=== PATIENT | male | born 1965 | race Caucasian/White ===

== ENCOUNTER 2017-03-28 16:36 | Inpatient (IN) | payer OTHER ==
[~2017-03-28] VITALS: Ht 167.6 cm; Wt 110.1 kg
[2017-03-28 17:03] LABS: BASE EXCESS -0.8 mEq/L (-3 to +3); BICARBONATE 30.7 mEq/L (22-26); CARBOXY HGB 5.1 % (0-5); COMMENTS - BLOOD GASES A+C+; DEVICE VENT; MECHANICAL RATE 12 resp/min; MODE AC; PCO2 86 mm Hg (35-45); PO2 73 mm Hg (80-100); SITE RR; TIDAL VOLUME 500 ML; pH 7.16 (7.35-7.45)
[2017-03-28 17:04] LABS: FI02 60 %; PEEP 5 CM/H20
[2017-03-28 17:13] LABS: EOSINOPHIL (%) 0 % (0-5); HEMATOCRIT 46.2 % (38.0-50.0); IMMATURE GRANULOCYTE (%) 1.1 % (0.0-0.7); IMMATURE GRANULOCYTE COUNT 0.2 K/uL; INSTRUMENT ABS NEUTROPHIL CT 13.8 K/uL; LYMPHOCYTE COUNT 0.6 K/uL (1.0-2.8); MCH 30.5 PG (29.0-34.0); MCHC 31.8 G/DL (30.0-36.0); MCV 95.9 FL (86-99); MEAN PLAT.VOLUME 11.3 uM^3 (9.0-12.4); MONOCYTE (%) 4.5 % (3-12); MONOCYTE COUNT 0.7 K/uL (0-0.8); NEUTROPHIL (%) 90.2 % (45-76); NEUTROPHIL COUNT 13.8 K/uL (1.8-6.4); PLATELET COUNT 161 K/uL (156-360); RBC DIS.WIDTH-CV 13.9 % (11.8-14.6); RBC DIS.WIDTH-SD 49.1 % (39-53); RED BLOOD COUNT 4.82 M/uL (4.00-5.50); WHITE BLOOD COUNT 15.2 K/uL (4.1-10.2)
[2017-03-28 17:24] LABS: CHLORIDE 101 mEq/L (99-109); POTASSIUM 4.3 mEq/L (3.7-5.4); SODIUM 136 mEq/L (136-147)
[2017-03-28 17:26] LABS: GLUCOSE 262 mg/dL (70-99)
[2017-03-28 17:27] LABS: ANION GAP 12 MEQ/L (2-14)
[2017-03-28 17:28] LABS: TOTAL BILIRUBIN 0.2 mg/dL (0.0-1.0)
[2017-03-28 17:29] LABS: SERUM ETHYL ALCOHOL < 10 mg/dL
[2017-03-28 17:30] LABS: ALKALINE PHOSPHATASE 73 IU/L (3-129); GFR ESTIMATE (CALCULATED) 57 mL/min/
[2017-03-28 17:32] LABS: UREA NITROGEN (BUN) 16 mg/dL (9-23)
[2017-03-28 17:33] LABS: SALICYLATE < 5.0 MG/DL (15-30)
[2017-03-28 17:34] LABS: CREATINE KINASE 177 IU/L (1-294); TOTAL CK 177 IU/L (1-294)
[2017-03-28 17:37] LABS: TROP-I INTERPRETATION NEGATIVE; TROPONIN-I 0.01 ng/mL (0.0-0.30)
[2017-03-28 17:40] LABS: CK-MB 1.7 ng/mL (0.0-4.9)
[2017-03-28 17:52] LABS: ADD MIUA? YES; BILIRUBIN NEGATIVE; BLOOD NEGATIVE; COLOR YELLOW ((YELLOW)); GLUCOSE (STRIP) >=500; KETONES NEGATIVE; LEUKOCYTES NEGATIVE; NITRITE NEGATIVE; PROTEIN (STRIP) 100; SPECIFIC GRAVITY 1.015 (1.000-1.030)
[2017-03-28 18:08] LABS: BACTERIA RARE /HPF; EPITHELIAL CELLS RARE /HPF; HYALINE CASTS 20-30 /LPF; MUCUS 1+ /LPF; UCUL ADDED? NO
[2017-03-28 19:48] LABS: AMPHETAMINE NEGATIVE (500 ng/mL); BARBITURATES NEGATIVE (200 ng/mL); BENZODIAZEPINES NEGATIVE (150 ng/mL); COCAINE PRESUMPTIVE POSITIVE (150 ng/mL); INTERNAL CONTROLS VALID? YES; METHADONE NEGATIVE (200 ng/mL); METHAMPHETAMINE NEGATIVE (500 ng/mL); OPIATES (MORPHINE) NEGATIVE (100 ng/mL); OXYCODONE NEGATIVE (100 ng/mL); PHENCYCLIDINE NEGATIVE (25 ng/mL); PROPOXYPHENE NEGATIVE (300 ng/mL); THC CANNABINOIDS NEGATIVE (50 ng/mL); TRICYCLIC ANTIDEPRESSANTS NEGATIVE (300 ng/mL)
[2017-03-28 19:49] LABS: ADD MEDTOX COMMENT Y
[2017-03-28 20:19] LABS: BASE EXCESS 3.1 mEq/L (-3 to +3); BICARBONATE 29.8 mEq/L (22-26); CARBOXY HGB 2.9 % (0-5); DEVICE VENT; FI02 100 %; MECHANICAL RATE 15 resp/min; METHEMOGLOBIN 1.2 % (0-1.5); MODE AC; PCO2 54 mm Hg (35-45); PEEP 5 CM/H20; PO2 309 mm Hg (80-100); SITE A+C+; TIDAL VOLUME 500 ML; TOTAL RESP RATE 24 resp/min; pH 7.35 (7.35-7.45)
[2017-03-28 21:20] VITALS: BP 158/95
[2017-03-28 22:00] VITALS: BP 104/62
[2017-03-28 22:04] VITALS: BP 157/107
[2017-03-28 23:00] VITALS: BP 90/55
[2017-03-29] VITALS (20 sets, daily range): BP systolic 97–150; BP diastolic 57–92
[2017-03-29 00:03] LABS: METH RESISTANT S AUREUS PCR NEGATIVE (NEGATIVE)
[2017-03-29 00:32] LABS: PROBE CHECK PASS; SPECIMEN PROCESSING CONTROL PASS
[2017-03-29 06:24] LABS: ANION GAP 4 MEQ/L (2-14); CHLORIDE 105 MEQ/L (99-109); GFR ESTIMATE (CALCULATED) > 59 mL/min/; POTASSIUM 4.5 MEQ/L (3.7-5.4); SAMPLE HEMOLYSIS CHECK 0; SAMPLE ICTERIC CHECK 0; SAMPLE LIPEMIA CHECK 0; SODIUM 141 MEQ/L (136-147); UREA NITROGEN (BUN) 14 mg/dL (9-23)
[2017-03-29 06:39] LABS: HEMATOCRIT 45.3 % (38.0-50.0); MCH 30.5 PG (29.0-34.0); MCV 95.4 FL (86-99); MEAN PLAT.VOLUME 11.2 uM^3 (9.0-12.4); PLATELET COUNT 138 K/uL (156-360); RBC DIS.WIDTH-SD 49.2 % (39-53); RED BLOOD COUNT 4.75 M/uL (4.00-5.50); WHITE BLOOD COUNT 10.6 K/uL (4.1-10.2)
[2017-03-29 06:40] LABS: GLUCOSE 96 mg/dL (70-99)
[2017-03-29 08:23] LABS: MAGNESIUM 1.9 mg/dl (1.3-2.7)
[2017-03-29 15:37] LABS: BASE EXCESS 4.9 mEq/L (-3 to +3); BICARBONATE 31.8 mEq/L (22-26); CARBOXY HGB 2.2 % (0-5); COMMENTS - BLOOD GASES A+C+; METHEMOGLOBIN 1.8 % (0-1.5); PCO2 55 mm Hg (35-45); PO2 80 mm Hg (80-100); SITE RR; pH 7.37 (7.35-7.45)
[2017-03-29 15:38] LABS: CONTINUOUS POS AIRWAY PRESSURE 5 cm H2O; DEVICE VENT; FI02 50 %; MODE TC; TOTAL RESP RATE 20 resp/min
[2017-03-30] VITALS (11 sets, daily range): BP systolic 115–150; BP diastolic 77–87
[2017-03-30] MEDS ORDERED: ELAVIL75 MG PO (06:28)
[2017-03-30] MEDS ORDERED: ABILIFY20 MG PO (06:29)
[2017-03-30] MEDS ORDERED: LEVO-T125 MCG PO (06:30)
[2017-03-30] MEDS ORDERED: DIPHENHYDRAMINE50 M1 PO (06:32)
[2017-03-30 06:56] LABS: ANION GAP 9 MEQ/L (2-14); CHLORIDE 105 MEQ/L (99-109); GFR ESTIMATE (CALCULATED) > 59 mL/min/; GLUCOSE 121 mg/dL (70-99); POTASSIUM 4.5 MEQ/L (3.7-5.4); SAMPLE HEMOLYSIS CHECK 0; SAMPLE ICTERIC CHECK 0; SAMPLE LIPEMIA CHECK 0; SODIUM 141 MEQ/L (136-147); UREA NITROGEN (BUN) 15 mg/dL (9-23)
[2017-03-30 06:57] LABS: MAGNESIUM 2.2 mg/dl (1.3-2.7)
[2017-03-30 09:33] LABS: EOSINOPHIL (%) 0 % (0-5); HEMATOCRIT 41.3 % (38.0-50.0); IMMATURE GRANULOCYTE (%) 0.6 % (0.0-0.7); IMMATURE GRANULOCYTE COUNT 0.1 K/uL; INSTRUMENT ABS NEUTROPHIL CT 9.8 K/uL; LYMPHOCYTE COUNT 0.9 K/uL (1.0-2.8); MCH 30.2 PG (29.0-34.0); MCHC 32.2 G/DL (30.0-36.0); MCV 93.7 FL (86-99); MEAN PLAT.VOLUME 11.8 uM^3 (9.0-12.4); MONOCYTE (%) 7.4 % (3-12); MONOCYTE COUNT 0.9 K/uL (0-0.8); NEUTROPHIL (%) 84.1 % (45-76); NEUTROPHIL COUNT 9.8 K/uL (1.8-6.4); PLATELET COUNT 132 K/uL (156-360); RBC DIS.WIDTH-SD 47.6 % (39-53); RED BLOOD COUNT 4.41 M/uL (4.00-5.50); WHITE BLOOD COUNT 11.6 K/uL (4.1-10.2)
[2017-03-30] MEDS ORDERED: ELAVIL50 MG PO (11:11)
[2017-03-31] VITALS: BP 130/85
[2017-03-31 02:00] VITALS: BP 135/86
[2017-03-31 04:00] VITALS: BP 118/69
[2017-03-31 05:31] LABS: EOSINOPHIL (%) 0.6 % (0-5); EOSINOPHIL COUNT 0.1 K/uL (0-0.3); HEMATOCRIT 41.5 % (38.0-50.0); IMMATURE GRANULOCYTE (%) 0.3 % (0.0-0.7); LYMPHOCYTE COUNT 1.6 K/uL (1.0-2.8); MCH 30.2 PG (29.0-34.0); MCHC 32.3 G/DL (30.0-36.0); MCV 93.7 FL (86-99); MEAN PLAT.VOLUME 11.1 uM^3 (9.0-12.4); MONOCYTE (%) 7.3 % (3-12); MONOCYTE COUNT 0.7 K/uL (0-0.8); NEUTROPHIL (%) 74.1 % (45-76); PLATELET COUNT 135 K/uL (156-360); RBC DIS.WIDTH-CV 14.4 % (11.8-14.6); RBC DIS.WIDTH-SD 49.3 % (39-53); RED BLOOD COUNT 4.43 M/uL (4.00-5.50); WHITE BLOOD COUNT 9.4 K/uL (4.1-10.2)
[2017-03-31 05:51] LABS: ANION GAP 8 MEQ/L (2-14); CHLORIDE 104 MEQ/L (99-109); GFR ESTIMATE (CALCULATED) > 59 mL/min/; GLUCOSE 91 mg/dL (70-99); MAGNESIUM 1.9 mg/dl (1.3-2.7); SAMPLE HEMOLYSIS CHECK 0; SAMPLE ICTERIC CHECK 0; SAMPLE LIPEMIA CHECK 0; SODIUM 141 MEQ/L (136-147); UREA NITROGEN (BUN) 17 mg/dL (9-23)
[2017-03-31 06:00] VITALS: BP 116/84
[2017-03-31] MEDS ORDERED: VENTOLIN HFA18 GM IH (07:59)
[2017-03-31] MEDS ORDERED: AUGMENTIN875 MG PO (07:59)
[2017-03-31 08:30] VITALS: BP 128/71
== END 2017-03-31 11:17 | disposition home or self-care (01) | DRG 917 ==
LOC: EME 16:36 → EDOF 20:10 → 4WEST 20:10
PROVIDERS: Emergency Medicine; Hospitalist; Internal Medicine Critical Care Medicine; Internal Medicine Nephrology
PROC: 5A1945Z Respiratory Ventilation, 24-96 Consecutive Hours (ICD-10-PCS; principal; 2017-03-28)
PROC: 0BH17EZ Insertion of Endotracheal Airway into Trachea, Via Natural or Artificial Opening (ICD-10-PCS; principal; 2017-03-28)
DX: T50.901A Poisoning by unspecified drugs, medicaments and biological substances, accidental (unintentional), initial encounter (principal); J96.00 Acute respiratory failure, unspecified whether with hypoxia or hypercapnia; J69.0 Pneumonitis due to inhalation of food and vomit; N17.9 Acute kidney failure, unspecified; E86.1 Hypovolemia; E87.2 Acidosis; J98.11 Atelectasis; E66.9 Obesity, unspecified; F14.20 Cocaine dependence, uncomplicated; I95.9 Hypotension, unspecified; F17.200 Nicotine dependence, unspecified, uncomplicated; Z68.39 Body mass index [BMI] 39.0-39.9, adult
CPT/HCPCS: 36600; 70450; 71010; 80048; 80053; 81003; 82550; 82553; 82803; 83605; 83735; 84100; 84484; 84999; 85025; 85027; 87040; 87070; 87077; 87086; 87147; 87186; 87205; 87641; 93005; 94002; 94003; 94640; 94640 76; 94760; 94799; 99202; 99281; 99285; G0480; J1650; J2310; J2543; J2704; J2930; J3370; J3475; J7030; J7050; S0028

== ENCOUNTER 2017-04-27 16:35 | Inpatient (IN) | payer OTHER ==
[~2017-04-27] VITALS: Ht 172.7 cm; Wt 89.6 kg
[~2017-04-27 16:35] MED LIST: ABILIFY20 MG PO; AUGMENTIN875 MG PO; DIPHENHYDRAMINE50 M1 PO; ELAVIL50 MG PO; ELAVIL75 MG PO; LEVO-T125 MCG PO; VENTOLIN HFA18 GM IH
[2017-04-27 17:10] LABS: BASOPHIL COUNT 0.1 K/uL (0-0.1); EOSINOPHIL (%) 0.5 % (0-5); EOSINOPHIL COUNT 0.1 K/uL (0-0.3); HEMATOCRIT 47.3 % (38.0-50.0); IMMATURE GRANULOCYTE (%) 0.3 % (0.0-0.7); INSTRUMENT ABS NEUTROPHIL CT 7.5 K/uL; MCH 30.6 PG (29.0-34.0); MCV 89.9 FL (86-99); MEAN PLAT.VOLUME 11.4 uM^3 (9.0-12.4); MONOCYTE (%) 7.7 % (3-12); MONOCYTE COUNT 0.8 K/uL (0-0.8); NEUTROPHIL (%) 71.9 % (45-76); NEUTROPHIL COUNT 7.5 K/uL (1.8-6.4); PLATELET COUNT 174 K/uL (156-360); RBC DIS.WIDTH-CV 13.2 % (11.8-14.6); RBC DIS.WIDTH-SD 43.7 % (39-53); RED BLOOD COUNT 5.26 M/uL (4.00-5.50); WHITE BLOOD COUNT 10.4 K/uL (4.1-10.2)
[2017-04-27 17:21] LABS: CHLORIDE 114 mEq/L (99-109); POTASSIUM 3.9 mEq/L (3.7-5.4); SODIUM 149 mEq/L (136-147)
[2017-04-27 17:23] LABS: GLUCOSE 100 mg/dL (70-99)
[2017-04-27 17:23] LABS: ADD MIUA? YES; BILIRUBIN NEGATIVE; BLOOD SMALL; COLOR AMBER ((YELLOW)); GLUCOSE (STRIP) NEGATIVE; KETONES 20; LEUKOCYTES NEGATIVE; NITRITE NEGATIVE; PROTEIN (STRIP) 100; SPECIFIC GRAVITY 1.034 (1.000-1.030); UROBILINOGEN 0.2 MG/DL (0.2-1.0)
[2017-04-27 17:24] LABS: ANION GAP 12 MEQ/L (2-14)
[2017-04-27 17:25] LABS: TOTAL BILIRUBIN 0.6 mg/dL (0.0-1.0)
[2017-04-27 17:26] LABS: SERUM ETHYL ALCOHOL < 10 mg/dL
[2017-04-27 17:27] LABS: ALKALINE PHOSPHATASE 56 IU/L (3-129); GFR ESTIMATE (CALCULATED) > 59 mL/min/
[2017-04-27 17:28] LABS: UREA NITROGEN (BUN) 30 mg/dL (9-23)
[2017-04-27 17:39] LABS: ADD MEDTOX COMMENT Y; AMPHETAMINE NEGATIVE (500 ng/mL); BARBITURATES NEGATIVE (200 ng/mL); BENZODIAZEPINES NEGATIVE (150 ng/mL); COCAINE PRESUMPTIVE POSITIVE (150 ng/mL); INTERNAL CONTROLS VALID? YES; METHADONE NEGATIVE (200 ng/mL); METHAMPHETAMINE NEGATIVE (500 ng/mL); OPIATES (MORPHINE) NEGATIVE (100 ng/mL); OXYCODONE NEGATIVE (100 ng/mL); PHENCYCLIDINE PRESUMPTIVE POSITIVE (25 ng/mL); PROPOXYPHENE NEGATIVE (300 ng/mL); THC CANNABINOIDS NEGATIVE (50 ng/mL); TRICYCLIC ANTIDEPRESSANTS NEGATIVE (300 ng/mL)
[2017-04-27 17:43] LABS: BACTERIA NONE SEEN /HPF; EPITHELIAL CELLS NONE SEEN /HPF; MUCUS 4+ /LPF; UCUL ADDED? NO; WHITE BLOOD CELLS 0-5 /HPF (0-5)
[2017-04-27 21:07] LABS: CK-MB 1.7 ng/mL (0.0-4.9)
[2017-04-27 22:01] LABS: CREATINE KINASE 338 IU/L (1-294)
[2017-04-27 22:09] LABS: TOTAL CK 338 IU/L (1-294)
[2017-04-28 01:29] VITALS: BP 122/84
[2017-04-28 04:08] VITALS: BP 130/66
[2017-04-28 07:09] LABS: HEMATOCRIT 45.7 % (38.0-50.0); MCH 29.8 PG (29.0-34.0); MCHC 32.2 G/DL (30.0-36.0); MCV 92.7 FL (86-99); MEAN PLAT.VOLUME 11.9 uM^3 (9.0-12.4); PLATELET COUNT 135 K/uL (156-360); RBC DIS.WIDTH-CV 13.6 % (11.8-14.6); RBC DIS.WIDTH-SD 46.3 % (39-53); RED BLOOD COUNT 4.93 M/uL (4.00-5.50); WHITE BLOOD COUNT 6.9 K/uL (4.1-10.2)
[2017-04-28 07:36] LABS: ANION GAP 10 MEQ/L (2-14); CHLORIDE 113 MEQ/L (99-109); GFR ESTIMATE (CALCULATED) > 59 mL/min/; GLUCOSE 75 mg/dL (70-99); POTASSIUM 3.7 MEQ/L (3.7-5.4); SAMPLE HEMOLYSIS CHECK 0; SAMPLE ICTERIC CHECK 0; SAMPLE LIPEMIA CHECK 0; SODIUM 149 MEQ/L (136-147); UREA NITROGEN (BUN) 24 mg/dL (9-23)
[2017-04-28 07:45] VITALS: BP 128/78
[2017-04-28 16:29] VITALS: BP 137/101
[2017-04-28 17:07] LABS: ANION GAP 11 MEQ/L (2-14); CHLORIDE 110 MEQ/L (99-109); POTASSIUM 3.8 MEQ/L (3.7-5.4); SAMPLE HEMOLYSIS CHECK 0; SAMPLE ICTERIC CHECK 0; SAMPLE LIPEMIA CHECK 0; SODIUM 145 MEQ/L (136-147)
[2017-04-28 17:12] LABS: GFR ESTIMATE (CALCULATED) > 59 mL/min/; UREA NITROGEN (BUN) 20 mg/dL (9-23)
[2017-04-28 17:36] LABS: GLUCOSE 96 mg/dL (70-99)
[2017-04-28 18:48] LABS: CREATINE KINASE 525 IU/L (1-294)
[2017-04-28 19:42] VITALS: BP 147/84
[2017-04-29 03:38] VITALS: BP 174/100
[2017-04-29 08:02] VITALS: BP 140/85
[2017-04-29 10:36] LABS: HEMATOCRIT 43.7 % (38.0-50.0); MCH 30.2 PG (29.0-34.0); MCHC 33.4 G/DL (30.0-36.0); MCV 90.3 FL (86-99); MEAN PLAT.VOLUME 12.1 uM^3 (9.0-12.4); PLATELET COUNT 117 K/uL (156-360); RBC DIS.WIDTH-CV 12.8 % (11.8-14.6); RBC DIS.WIDTH-SD 42.4 % (39-53); RED BLOOD COUNT 4.84 M/uL (4.00-5.50); WHITE BLOOD COUNT 6.6 K/uL (4.1-10.2)
[2017-04-29 10:57] LABS: ANION GAP 10 MEQ/L (2-14); CHLORIDE 105 MEQ/L (99-109); GFR ESTIMATE (CALCULATED) > 59 mL/min/; GLUCOSE 71 mg/dL (70-99); POTASSIUM 3.9 MEQ/L (3.7-5.4); SAMPLE HEMOLYSIS CHECK 0; SAMPLE ICTERIC CHECK 0; SAMPLE LIPEMIA CHECK 0; SODIUM 140 MEQ/L (136-147); UREA NITROGEN (BUN) 15 mg/dL (9-23)
[2017-04-29 16:15] VITALS: BP 138/80
[2017-04-29 23:36] VITALS: BP 131/88
[2017-04-30 04:10] VITALS: BP 172/83
[2017-04-30 07:34] VITALS: BP 142/70
[2017-04-30 07:40] VITALS: BP 140/72
[2017-04-30 10:31] LABS: ANION GAP 12 MEQ/L (2-14); CHLORIDE 104 MEQ/L (99-109); GFR ESTIMATE (CALCULATED) > 59 mL/min/; GLUCOSE 77 mg/dL (70-99); SAMPLE HEMOLYSIS CHECK 1; SAMPLE ICTERIC CHECK 0; SAMPLE LIPEMIA CHECK 0; SODIUM 140 MEQ/L (136-147); UREA NITROGEN (BUN) 12 mg/dL (9-23)
[2017-04-30 10:32] LABS: POTASSIUM 4.7 MEQ/L (3.7-5.4)
[2017-04-30 16:33] VITALS: BP 134/91
[2017-04-30 19:54] VITALS: BP 165/86
[2017-05-01 00:40] VITALS: BP 136/90
[2017-05-01 04:02] VITALS: BP 162/81
[2017-05-01 08:29] VITALS: BP 125/81
[2017-05-01 09:33] LABS: HEMATOCRIT 46.9 % (38.0-50.0); MCH 30.8 PG (29.0-34.0); MCV 88.2 FL (86-99); RBC DIS.WIDTH-CV 12.8 % (11.8-14.6); RBC DIS.WIDTH-SD 41.3 % (39-53); RED BLOOD COUNT 5.32 M/uL (4.00-5.50)
[2017-05-01 09:57] LABS: ANION GAP 11 MEQ/L (2-14); CHLORIDE 102 MEQ/L (99-109); GFR ESTIMATE (CALCULATED) > 59 mL/min/; POTASSIUM 4.1 MEQ/L (3.7-5.4); SAMPLE HEMOLYSIS CHECK 0; SAMPLE ICTERIC CHECK 0; SAMPLE LIPEMIA CHECK 0; SODIUM 138 MEQ/L (136-147); UREA NITROGEN (BUN) 11 mg/dL (9-23)
[2017-05-01 09:58] LABS: GLUCOSE 158 mg/dL (70-99); MEAN PLAT.VOLUME 12.5 uM^3 (9.0-12.4); PLAT.SUFFICIENCY DECREASED; PLATELET COUNT 124 K/uL (156-360)
[2017-05-01 11:42] LABS: TROP-I INTERPRETATION NEGATIVE; TROPONIN-I < 0.01 ng/mL (0.0-0.30)
[2017-05-01 12:20] VITALS: BP 124/81
[2017-05-01 16:00] VITALS: BP 149/72
[2017-05-01 20:11] VITALS: BP 145/80
[2017-05-02 00:25] VITALS: BP 175/79
[2017-05-02 08:04] VITALS: BP 132/104
[2017-05-02 09:34] LABS: MCH 30.2 PG (29.0-34.0); MCV 88.8 FL (86-99); RBC DIS.WIDTH-CV 12.7 % (11.8-14.6); RBC DIS.WIDTH-SD 41.6 % (39-53); RED BLOOD COUNT 5.29 M/uL (4.00-5.50); WHITE BLOOD COUNT 5.3 K/uL (4.1-10.2)
[2017-05-02 10:00] LABS: ANION GAP 8 MEQ/L (2-14); CHLORIDE 103 MEQ/L (99-109); GFR ESTIMATE (CALCULATED) > 59 mL/min/; POTASSIUM 4.4 MEQ/L (3.7-5.4); SAMPLE HEMOLYSIS CHECK 1; SAMPLE ICTERIC CHECK 0; SAMPLE LIPEMIA CHECK 0; SODIUM 139 MEQ/L (136-147); UREA NITROGEN (BUN) 12 mg/dL (9-23)
[2017-05-02 10:01] LABS: GLUCOSE 96 mg/dL (70-99)
[2017-05-02 14:58] VITALS: BP 134/80
[2017-05-02 15:50] VITALS: BP 136/91
[2017-05-02 20:31] VITALS: BP 157/82
[2017-05-02 23:54] VITALS: BP 147/75
[2017-05-03 04:34] VITALS: BP 174/75
[2017-05-03 08:29] VITALS: BP 118/75
[2017-05-03 11:50] VITALS: BP 133/83
[2017-05-03 16:50] VITALS: BP 135/81
[2017-05-03 20:44] VITALS: BP 154/86
[2017-05-03 23:35] VITALS: BP 126/75
[2017-05-04 04:34] VITALS: BP 171/112
[2017-05-04 08:52] VITALS: BP 178/121
[2017-05-04 09:33] VITALS: BP 128/74
[2017-05-04 13:29] VITALS: BP 129/81
[2017-05-04 16:54] VITALS: BP 134/86
[2017-05-04 19:47] VITALS: BP 124/80
[2017-05-05 04:10] VITALS: BP 139/78
[2017-05-05 08:05] VITALS: BP 130/84
[2017-05-05 09:33] LABS: EOSINOPHIL (%) 2.1 % (0-5); EOSINOPHIL COUNT 0.1 K/uL (0-0.3); HEMATOCRIT 49.1 % (38.0-50.0); IMMATURE GRANULOCYTE (%) 0.8 % (0.0-0.7); IMMATURE GRANULOCYTE COUNT 0.1 K/uL; INSTRUMENT ABS NEUTROPHIL CT 3.2 K/uL; MCH 30.5 PG (29.0-34.0); MCV 87.1 FL (86-99); MEAN PLAT.VOLUME 12.9 uM^3 (9.0-12.4); MONOCYTE (%) 10.4 % (3-12); MONOCYTE COUNT 0.6 K/uL (0-0.8); NEUTROPHIL (%) 52.6 % (45-76); NEUTROPHIL COUNT 3.2 K/uL (1.8-6.4); RBC DIS.WIDTH-CV 12.7 % (11.8-14.6); RBC DIS.WIDTH-SD 39.8 % (39-53); RED BLOOD COUNT 5.64 M/uL (4.00-5.50); WHITE BLOOD COUNT 6.1 K/uL (4.1-10.2)
[2017-05-05 09:41] LABS: PLATELET COUNT 165 K/uL (156-360)
[2017-05-05 09:49] LABS: ANION GAP 10 MEQ/L (2-14); CHLORIDE 102 MEQ/L (99-109); GFR ESTIMATE (CALCULATED) > 59 mL/min/; GLUCOSE 90 mg/dL (70-99); POTASSIUM 4.5 MEQ/L (3.7-5.4); SAMPLE HEMOLYSIS CHECK 1; SAMPLE ICTERIC CHECK 0; SAMPLE LIPEMIA CHECK 0; SODIUM 135 MEQ/L (136-147); UREA NITROGEN (BUN) 20 mg/dL (9-23)
[2017-05-05 12:07] VITALS: BP 154/99
[2017-05-05 15:59] VITALS: BP 130/86
[2017-05-05 19:50] VITALS: BP 123/84
[2017-05-05 23:46] VITALS: BP 112/78
[2017-05-06 04:15] VITALS: BP 160/94
[2017-05-06 07:41] VITALS: BP 128/64
[2017-05-06 11:20] VITALS: BP 132/74
[2017-05-06 16:43] VITALS: BP 122/78
[2017-05-06 19:35] VITALS: BP 165/94
[2017-05-07 00:33] VITALS: BP 138/78
[2017-05-07 05:17] VITALS: BP 142/83
[2017-05-07 06:49] LABS: ANION GAP 9 MEQ/L (2-14); CHLORIDE 106 MEQ/L (99-109); GFR ESTIMATE (CALCULATED) > 59 mL/min/; GLUCOSE 87 mg/dL (70-99); POTASSIUM 4.4 MEQ/L (3.7-5.4); SAMPLE HEMOLYSIS CHECK 2; SAMPLE ICTERIC CHECK 0; SAMPLE LIPEMIA CHECK 0; SODIUM 138 MEQ/L (136-147); UREA NITROGEN (BUN) 20 mg/dL (9-23)
[2017-05-07 08:15] VITALS: BP 142/78
[2017-05-07 11:09] VITALS: BP 128/71
[2017-05-07 16:24] VITALS: BP 140/78
[2017-05-07 19:44] VITALS: BP 183/98
[2017-05-08] MEDS ORDERED: DAILY VALUE1 EACH PO (01:36)
[2017-05-08] MEDS ORDERED: ESCITALOPRAM OX10 MG PO (01:37)
[2017-05-08] MEDS ORDERED: LEVOCETIRIZINE D5 MG PO (01:39)
[2017-05-08 01:43] VITALS: BP 137/74
[2017-05-08] MEDS ORDERED: PREVACID30 MG PO (01:43)
[2017-05-08] MEDS ORDERED: RISPERDAL0.5 MG PO (01:44)
[2017-05-08] MEDS ORDERED: VALTREX50 MG/ML PO (01:44)
[2017-05-08] MEDS ORDERED: DEPO-PROVER150 MG/ML IM (01:47)
[2017-05-08] MEDS ORDERED: TYLENOL EXTRA500 MG PO (01:48)
[2017-05-08] MEDS ORDERED: TOPICORT 0.05%60 GM TP (01:48)
[2017-05-08] MEDS ORDERED: FLONASE16 G1 BOTH NARES (01:51)
[2017-05-08] MEDS ORDERED: IBUPROFEN600 MG PO (01:56)
[2017-05-08] MEDS ORDERED: TYLENOL PM1 CAPLET PO (01:56)
[2017-05-08] MEDS ORDERED: ROBITUSSIN DM118 ML PO (01:58)
[2017-05-08 05:23] VITALS: BP 115/77
[2017-05-08 16:48] VITALS: BP 128/71
[2017-05-08 23:51] VITALS: BP 169/88
[2017-05-09 08:56] VITALS: BP 117/80
[2017-05-09 15:47] VITALS: BP 149/83
[2017-05-09 23:47] VITALS: BP 159/76
[2017-05-10 07:39] VITALS: BP 128/56
[2017-05-10 23:39] VITALS: BP 165/96
[2017-05-11 06:55] LABS: HEMATOCRIT 41.7 % (38.0-50.0); MCH 30.9 PG (29.0-34.0); MCHC 35.5 G/DL (30.0-36.0); MCV 87.1 FL (86-99); MEAN PLAT.VOLUME 12.5 uM^3 (9.0-12.4); PLATELET COUNT 167 K/uL (156-360); RBC DIS.WIDTH-CV 12.5 % (11.8-14.6); RBC DIS.WIDTH-SD 39.8 % (39-53); RED BLOOD COUNT 4.79 M/uL (4.00-5.50); WHITE BLOOD COUNT 5.3 K/uL (4.1-10.2)
[2017-05-11 07:04] LABS: ANION GAP 9 MEQ/L (2-14); CHLORIDE 102 MEQ/L (99-109); GFR ESTIMATE (CALCULATED) > 59 mL/min/; GLUCOSE 88 mg/dL (70-99); POTASSIUM 3.9 MEQ/L (3.7-5.4); SAMPLE HEMOLYSIS CHECK 0; SAMPLE ICTERIC CHECK 0; SAMPLE LIPEMIA CHECK 0; SODIUM 137 MEQ/L (136-147); UREA NITROGEN (BUN) 10 mg/dL (9-23)
[2017-05-11 23:38] VITALS: BP 137/90
[2017-05-12 08:00] VITALS: BP 134/82
[2017-05-12 16:39] VITALS: BP 98/65
[2017-05-12 23:35] VITALS: BP 133/99
[2017-05-13 08:28] VITALS: BP 135/85
[2017-05-13 10:04] LABS: ANION GAP 8 MEQ/L (2-14); CHLORIDE 102 MEQ/L (99-109); GFR ESTIMATE (CALCULATED) > 59 mL/min/; GLUCOSE 90 mg/dL (70-99); POTASSIUM 4.2 MEQ/L (3.7-5.4); SAMPLE HEMOLYSIS CHECK 0; SAMPLE ICTERIC CHECK 0; SAMPLE LIPEMIA CHECK 0; SODIUM 138 MEQ/L (136-147); UREA NITROGEN (BUN) 11 mg/dL (9-23)
[2017-05-13 16:01] VITALS: BP 168/85
[2017-05-13 23:20] VITALS: BP 137/63
[2017-05-14 08:11] VITALS: BP 130/89
[2017-05-14 16:26] VITALS: BP 109/69
[2017-05-14 23:38] VITALS: BP 168/72
[2017-05-15 08:12] VITALS: BP 125/71
[2017-05-15 15:37] VITALS: BP 128/61
[2017-05-15 19:33] VITALS: BP 134/82
[2017-05-16] VITALS (7 sets, daily range): BP systolic 117–162; BP diastolic 56–96
[2017-05-16 06:33] LABS: HEMATOCRIT 41.9 % (38.0-50.0); MCHC 34.6 G/DL (30.0-36.0); MCV 86.7 FL (86-99); MEAN PLAT.VOLUME 12.1 uM^3 (9.0-12.4); RBC DIS.WIDTH-CV 12.4 % (11.8-14.6); RBC DIS.WIDTH-SD 39.4 % (39-53); RED BLOOD COUNT 4.83 M/uL (4.00-5.50); WHITE BLOOD COUNT 7.4 K/uL (4.1-10.2)
[2017-05-16 06:52] LABS: PLATELET COUNT 223 K/uL (156-360)
[2017-05-16 06:58] LABS: ANION GAP 10 MEQ/L (2-14); CHLORIDE 102 MEQ/L (99-109); GFR ESTIMATE (CALCULATED) > 59 mL/min/; GLUCOSE 91 mg/dL (70-99); POTASSIUM 4.1 MEQ/L (3.7-5.4); SAMPLE HEMOLYSIS CHECK 0; SAMPLE ICTERIC CHECK 0; SAMPLE LIPEMIA CHECK 0; SODIUM 139 MEQ/L (136-147); UREA NITROGEN (BUN) 19 mg/dL (9-23)
[2017-05-17 03:43] VITALS: BP 119/73
[2017-05-17 07:42] VITALS: BP 117/63
[2017-05-17 16:06] VITALS: BP 126/57
[2017-05-17 18:26] LABS: HEMATOCRIT 41.7 % (38.0-50.0); MCH 30.1 PG (29.0-34.0); MCHC 34.1 G/DL (30.0-36.0); MCV 88.3 FL (86-99); PLATELET COUNT 164 K/uL (156-360); RBC DIS.WIDTH-CV 12.5 % (11.8-14.6); RBC DIS.WIDTH-SD 41.1 % (39-53); RED BLOOD COUNT 4.72 M/uL (4.00-5.50); WHITE BLOOD COUNT 6.8 K/uL (4.1-10.2)
[2017-05-17 18:41] LABS: ANION GAP 8 MEQ/L (2-14); CHLORIDE 101 MEQ/L (99-109); MAGNESIUM 1.9 mg/dl (1.3-2.7); POTASSIUM 3.4 MEQ/L (3.7-5.4); SAMPLE HEMOLYSIS CHECK 0; SAMPLE ICTERIC CHECK 0; SAMPLE LIPEMIA CHECK 0; SODIUM 135 MEQ/L (136-147)
[2017-05-17 18:48] LABS: GFR ESTIMATE (CALCULATED) > 59 mL/min/; UREA NITROGEN (BUN) 19 mg/dL (9-23)
[2017-05-17 18:51] LABS: GLUCOSE 152 mg/dL (70-99)
[2017-05-18 00:25] VITALS: BP 130/84
[2017-05-18 07:41] VITALS: BP 123/83
[2017-05-18 15:13] VITALS: BP 151/73
[2017-05-18 23:37] VITALS: BP 130/93
[2017-05-19 08:45] VITALS: BP 148/71
[2017-05-19 15:57] VITALS: BP 118/60
[2017-05-19 23:34] VITALS: BP 129/69
[2017-05-20 08:22] VITALS: BP 169/81
[2017-05-20 08:58] LABS: POINT-OF-CARE METER ID UU14188577
[2017-05-20 15:31] VITALS: BP 127/75
[2017-05-21 01:00] VITALS: BP 132/73
[2017-05-21 07:48] VITALS: BP 119/86
[2017-05-21 15:59] VITALS: BP 121/61
[2017-05-21 23:56] VITALS: BP 134/68
[2017-05-22 08:10] VITALS: BP 125/87
[2017-05-22 16:09] VITALS: BP 110/62
[2017-05-22 20:34] VITALS: BP 124/87
[2017-05-22 23:59] VITALS: BP 124/78
[2017-05-23 08:12] VITALS: BP 114/72
[2017-05-23] MEDS ORDERED: HALDOL5 MG PO (11:03)
[2017-05-23] MEDS ORDERED: BACITRACIN28.4 GM TP (11:09)
[2017-05-23] MEDS ORDERED: BISAC-EVAC10 MG PR (11:09)
[2017-05-23 16:22] VITALS: BP 114/61
[2017-05-24 00:09] VITALS: BP 14/67
[2017-05-24 08:18] VITALS: BP 130/84
[2017-05-24 16:00] VITALS: BP 117/71
[2017-05-24 23:50] VITALS: BP 142/86
[2017-05-25 07:49] VITALS: BP 130/73
[2017-05-25 15:18] VITALS: BP 137/89
[2017-05-25 23:50] VITALS: BP 130/72
[2017-05-26 08:17] VITALS: BP 116/72
[2017-05-26 17:16] VITALS: BP 118/80
[2017-05-26 23:34] VITALS: BP 109/67
[2017-05-27 07:36] LABS: ANION GAP 7 MEQ/L (2-14); CHLORIDE 101 MEQ/L (99-109); GFR ESTIMATE (CALCULATED) > 59 mL/min/; GLUCOSE 94 mg/dL (70-99); POTASSIUM 3.8 MEQ/L (3.7-5.4); SAMPLE HEMOLYSIS CHECK 0; SAMPLE ICTERIC CHECK 0; SAMPLE LIPEMIA CHECK 0; SODIUM 138 MEQ/L (136-147); UREA NITROGEN (BUN) 17 mg/dL (9-23)
[2017-05-27 07:55] VITALS: BP 112/79
[2017-05-27 16:25] VITALS: BP 121/81
[2017-05-27 23:31] VITALS: BP 138/80
[2017-05-28 07:53] VITALS: BP 114/67
[2017-05-28 15:42] VITALS: BP 128/79
[2017-05-28 23:40] VITALS: BP 130/74
[2017-05-29 07:38] VITALS: BP 115/65
[2017-05-29 15:54] VITALS: BP 119/70
[2017-05-29 23:53] VITALS: BP 110/65
[2017-05-30 08:11] VITALS: BP 117/65
[2017-05-30 11:55] VITALS: BP 125/75
[2017-05-30 15:35] VITALS: BP 115/73
[2017-05-30 23:26] VITALS: BP 131/81
[2017-05-31 07:18] VITALS: BP 121/74
[2017-05-31 15:27] VITALS: BP 132/77
[2017-05-31 23:30] VITALS: BP 118/57
[2017-06-01 07:00] VITALS: BP 120/74
[2017-06-01 15:00] VITALS: BP 120/80
[2017-06-01 23:47] VITALS: BP 132/75
[2017-06-02 07:59] VITALS: BP 119/73
[2017-06-02 16:15] VITALS: BP 122/83
[2017-06-03 00:03] VITALS: BP 126/72
[2017-06-03 08:30] VITALS: BP 134/80
[2017-06-03 16:15] VITALS: BP 114/78
[2017-06-04 00:12] VITALS: BP 120/65
[2017-06-04 07:41] VITALS: BP 108/59
[2017-06-04 15:55] VITALS: BP 111/66
[2017-06-04 23:40] VITALS: BP 131/79
[2017-06-05 07:58] VITALS: BP 114/73
[2017-06-05 16:08] VITALS: BP 100/67
[2017-06-05 23:17] VITALS: BP 104/67
[2017-06-06 07:52] VITALS: BP 115/68
[2017-06-06 15:51] VITALS: BP 113/63
[2017-06-06 23:52] VITALS: BP 107/65
[2017-06-07 08:13] VITALS: BP 115/59
[2017-06-07 16:34] VITALS: BP 109/68
[2017-06-07 23:37] VITALS: BP 126/70
[2017-06-08 07:50] VITALS: BP 100/60
[2017-06-08 15:24] VITALS: BP 117/73
[2017-06-08 23:31] VITALS: BP 121/62
[2017-06-09 08:21] VITALS: BP 119/71
[2017-06-09 16:09] VITALS: BP 113/68
[2017-06-09 23:44] VITALS: BP 114/62
[2017-06-10 08:32] VITALS: BP 133/84
[2017-06-10 11:58] VITALS: BP 117/63
[2017-06-10 16:39] VITALS: BP 108/69
[2017-06-10 23:38] VITALS: BP 136/76
[2017-06-11 07:46] VITALS: BP 108/70
[2017-06-11 16:30] VITALS: BP 108/65
[2017-06-11 23:30] VITALS: BP 112/59
[2017-06-12 07:48] VITALS: BP 118/62
[2017-06-12 16:30] VITALS: BP 111/71
[2017-06-12 23:14] VITALS: BP 117/62
[2017-06-13 07:49] VITALS: BP 108/55
[2017-06-13 15:10] VITALS: BP 108/77
[2017-06-13 23:47] VITALS: BP 118/74
[2017-06-14 08:18] VITALS: BP 109/72
[2017-06-14 16:30] VITALS: BP 128/65
[2017-06-14 23:23] VITALS: BP 112/55
[2017-06-15 07:44] VITALS: BP 154/59
[2017-06-15 15:25] VITALS: BP 113/64
[2017-06-16 00:16] VITALS: BP 120/65
[2017-06-16 08:44] VITALS: BP 107/59
[2017-06-16] MEDS ORDERED: POLYETHYLENE GL17 GM PO (11:19)
== END 2017-06-16 15:15 | DRG 917 ==
LOC: EME 16:35 → EDOF 23:22 → 3EAST 23:22
PROVIDERS: Emergency Medicine; Hospitalist; Internal Medicine; Physician Assistant
DX: T50.901A Poisoning by unspecified drugs, medicaments and biological substances, accidental (unintentional), initial encounter (principal); F14.23 Cocaine dependence with withdrawal; E87.0 Hyperosmolality and hypernatremia; G92 Toxic encephalopathy; G93.5 Compression of brain; M62.82 Rhabdomyolysis; F19.921 Other psychoactive substance use, unspecified with intoxication with delirium; D72.829 Elevated white blood cell count, unspecified; N17.9 Acute kidney failure, unspecified; S06.9X0A Unspecified intracranial injury without loss of consciousness, initial encounter; R56.9 Unspecified convulsions; R09.02 Hypoxemia; E87.5 Hyperkalemia; F16.10 Hallucinogen abuse, uncomplicated; N18.9 Chronic kidney disease, unspecified; Z78.1 Physical restraint status; R47.01 Aphasia; R63.3 Feeding difficulties; F17.200 Nicotine dependence, unspecified, uncomplicated; Z68.30 Body mass index [BMI] 30.0-30.9, adult; E86.0 Dehydration; G56.21 Lesion of ulnar nerve, right upper limb; R32 Unspecified urinary incontinence
CPT/HCPCS: 70450; 70470; 70551; 71010; 73130; 74177; 80048; 80048 91; 80053; 81003; 82550; 82553; 82948; 83735; 84484; 84999; 85025; 85027; 92507 GN; 92523 GN; 93005; 94799; 95819; 97530 GO; 97530 GP; 97532 GN; 99281; 99285; G0378; G0480; J1200; J1630; J1650; J2060; J3480; J3486; J7040; J7042; J7070; J7120; S0028

== ENCOUNTER 2018-01-22 12:24 | Observation (INO) | payer OTHER ==
[~2018-01-22] VITALS: Ht 175.3 cm; Wt 121.7 kg
[~2018-01-22 12:24] MED LIST changes: +BACITRACIN28.4 GM TP; +BISAC-EVAC10 MG PR; +DAILY VALUE1 EACH PO; +DEPO-PROVER150 MG/ML IM; +ESCITALOPRAM OX10 MG PO; +FLONASE16 G1 BOTH NARES; +HALDOL5 MG PO; +IBUPROFEN600 MG PO; +LEVOCETIRIZINE D5 MG PO; +POLYETHYLENE GL17 GM PO; +PREVACID30 MG PO; +RISPERDAL0.5 MG PO; +ROBITUSSIN DM118 ML PO; +TOPICORT 0.05%60 GM TP; +TYLENOL EXTRA500 MG PO; +TYLENOL PM1 CAPLET PO; +VALTREX50 MG/ML PO
[2018-01-22 14:04] LABS: BASOPHIL (%) 0.1 % (0-1); EOSINOPHIL (%) 0 % (0-5); HEMATOCRIT 41.7 % (38.0-50.0); HEMOGLOBIN 14.2 G/DL (12.5-16.6); IMMATURE GRANULOCYTE (%) 0.5 % (0.0-0.7); LYMPHOCYTE (%) 10.7 % (15-42); LYMPHOCYTE COUNT 1.2 K/uL (1.0-2.8); MCH 31.1 PG (29.0-34.0); MCHC 34.1 G/DL (30.0-36.0); MCV 91.4 FL (86-99); MONOCYTE (%) 8.6 % (3-12); MONOCYTE COUNT 0.9 K/uL (0-0.8); NEUTROPHIL (%) 80.1 % (45-76); NEUTROPHIL COUNT 8.8 K/uL (1.8-6.4); NRBC (%) 0.3 /100 WBC (0-0); PLATELET COUNT 221 K/uL (156-360); RBC DIS.WIDTH-CV 13.5 % (11.8-14.6); RBC DIS.WIDTH-SD 45.4 % (39-53); RED BLOOD COUNT 4.56 M/uL (4.00-5.50); WHITE BLOOD COUNT 10.9 K/uL (4.1-10.2)
[2018-01-22 14:10] LABS: INTER. NORMALIZED RATIO 1.2
[2018-01-22 14:12] LABS: CHLORIDE 100 mEq/L (99-109); SODIUM 138 mEq/L (136-147)
[2018-01-22 14:14] LABS: GLUCOSE 174 mg/dL (70-99)
[2018-01-22 14:17] LABS: CREATININE 2.8 mg/dL (0.6-1.3); GFR ESTIMATE (CALCULATED) 26 mL/min/ (58.99-99999)
[2018-01-22 14:18] LABS: UREA NITROGEN (BUN) 29 mg/dL (9-23)
[2018-01-22] MEDS ORDERED: ULTRAM50 MG PO (16:00)
[2018-01-22] MEDS ORDERED: TRAZODONE HCL50 MG PO (16:05)
[2018-01-22] MEDS ORDERED: XANAX2 MG PO (16:06)
[2018-01-22 17:30] VITALS: BP 96/75
[2018-01-22 17:50] LABS: HDL CHOLESTEROL 47 MG/DL (Desirable>=40); LDL CHOLESTEROL 68 mg/dL (Desirable<100); NON-HDL CHOLESTEROL 80 mg/dL (Desirable<160); TOTAL CHOLESTEROL 127 mg/dL (Desirable<200); TRIGLYCERIDES 61 MG/DL (Normal: <150)
[2018-01-23 09:11] LABS: HEMOGLOBIN A1c (GLYCOHEMOGLOB) 5.1 % (Below 5.7)
== END 2018-01-22 17:30 | disposition left against medical advice (07) ==
LOC: EME 12:24 → EDOF 16:02 → ENRESERV 16:05 → EDOF 17:30
PROVIDERS: Physician Assistant
DX: G45.9 Transient cerebral ischemic attack, unspecified (principal); N17.9 Acute kidney failure, unspecified; J96.01 Acute respiratory failure with hypoxia; J44.0 Chronic obstructive pulmonary disease with (acute) lower respiratory infection; J20.9 Acute bronchitis, unspecified; F17.200 Nicotine dependence, unspecified, uncomplicated; F14.10 Cocaine abuse, uncomplicated; Z91.19 Patient's noncompliance with other medical treatment and regimen; Z91.14 Patient's other noncompliance with medication regimen; F20.0 Paranoid schizophrenia; F31.9 Bipolar disorder, unspecified; G47.00 Insomnia, unspecified; G93.5 Compression of brain
CPT/HCPCS: 70450; 70544; 70547; 70551; 72125; 80048; 80061; 81003; 82043; 82570; 82575; 83036; 84156; 84300; 84484; 84540; 85025; 85610; 85730; 87040; 89190; 93005; 99281; 99285; G0378; G0480; J7030